=== PATIENT | female | born 1945 | race Two or more races ===

== ENCOUNTER 2017-06-28 07:14 | Outpatient (CLI) | payer OTHER | END 2017-06-28 07:16 | disposition home or self-care (01) | LOC: SONOGRAMA 07:14 | DX: R22.2 Localized swelling, mass and lump, trunk (principal) ==

== ENCOUNTER 2018-12-12 09:39 | Day surgery (SDC) | payer OTHER ==
[~2018-12-12 09:39] MED LIST: AVALIDE 300-121 EACH PO; FOLGARD TABLET1 EACH PO; GLUCOPHAGE XR750 MG PO; NEURIN SL; NORVASC5 MG PO; SYNTHROID100 MCG PO; SYNTHROID150 MCG PO; ZANTAC150 M3 PO; ZINC LOZENGES1 EACH; ZOCOR20 MG PO
== END 2018-12-12 15:35 | disposition home or self-care (01) ==
LOC: CIR.AMB 09:39
DX: D24.2 Benign neoplasm of left breast (principal)

== ENCOUNTER 2019-09-09 23:33 | Emergency (ER) | payer OTHER ==
[~2019-09-09] VITALS: Ht 160 cm; Wt 68.0 kg
[2019-09-09] MEDS ORDERED: DIOVAN HCT 1601 EACH (23:44)
[2019-09-10] MEDS ORDERED: LEVSIN/SL0.125 MG SL ×2 (04:42→04:43)
== END 2019-09-10 04:44 | disposition home or self-care (01) ==
LOC: ER 23:33
DX: D35.02 Benign neoplasm of left adrenal gland (principal); D35.01 Benign neoplasm of right adrenal gland; R10.2 Pelvic and perineal pain

== ENCOUNTER 2019-10-17 07:14 | Outpatient (CLI) | payer OTHER ==
[~2019-10-17 07:14] MED LIST changes: +DIOVAN HCT 1601 EACH; +LEVSIN/SL0.125 MG SL
== END 2019-10-17 07:22 | disposition home or self-care (01) ==
LOC: MRI 07:14
PROVIDERS: ATTEND Internal Medicine Hematology & Oncology
DX: C73 Malignant neoplasm of thyroid gland (principal); D51.1 Vitamin B12 deficiency anemia due to selective vitamin B12 malabsorption with proteinuria; D51.3 Other dietary vitamin B12 deficiency anemia; C44.629 Squamous cell carcinoma of skin of left upper limb, including shoulder; E55.9 Vitamin D deficiency, unspecified; E89.0 Postprocedural hypothyroidism; I10 Essential (primary) hypertension; E08.65 Diabetes mellitus due to underlying condition with hyperglycemia; J45.20 Mild intermittent asthma, uncomplicated; E78.49 Other hyperlipidemia; R92.0 Mammographic microcalcification found on diagnostic imaging of breast; N60.22 Fibroadenosis of left breast; N64.1 Fat necrosis of breast
CPT/HCPCS: 74183; A9575; 74182

== ENCOUNTER 2020-03-23 08:02 | Outpatient (CLI) | payer OTHER | END 2020-03-23 08:04 | disposition home or self-care (01) | LOC: RX STUDY 08:02 | PROVIDERS: ATTEND Internal Medicine Gastroenterology | DX: R10.13 Epigastric pain (principal) ==

== ENCOUNTER 2021-03-12 07:51 | Outpatient (CLI) | payer OTHER | END 2021-03-12 07:59 | disposition home or self-care (01) | LOC: LAB 07:51 | PROVIDERS: ATTEND Internal Medicine Hematology & Oncology | DX: I10 Essential (primary) hypertension (principal); D50.8 Other iron deficiency anemias; R74.02 Elevation of levels of lactic acid dehydrogenase [LDH]; K76.89 Other specified diseases of liver; D51.8 Other vitamin B12 deficiency anemias; E06.3 Autoimmune thyroiditis; C50.919 Malignant neoplasm of unspecified site of unspecified female breast; R97.8 Other abnormal tumor markers; R97.0 Elevated carcinoembryonic antigen [CEA]; C73 Malignant neoplasm of thyroid gland; D51.1 Vitamin B12 deficiency anemia due to selective vitamin B12 malabsorption with proteinuria; D51.3 Other dietary vitamin B12 deficiency anemia; C44.629 Squamous cell carcinoma of skin of left upper limb, including shoulder; E55.9 Vitamin D deficiency, unspecified; E08.65 Diabetes mellitus due to underlying condition with hyperglycemia; J45.20 Mild intermittent asthma, uncomplicated; E78.5 Hyperlipidemia, unspecified; R92.0 Mammographic microcalcification found on diagnostic imaging of breast; N60.22 Fibroadenosis of left breast; N64.1 Fat necrosis of breast; E03.8 Other specified hypothyroidism; E78.2 Mixed hyperlipidemia; E56.8 Deficiency of other vitamins; R19.5 Other fecal abnormalities; N19 Unspecified kidney failure; Z12.11 Encounter for screening for malignant neoplasm of colon; N39.0 Urinary tract infection, site not specified ==

== ENCOUNTER 2021-08-20 07:20 | Outpatient (CLI) | payer OTHER | END 2021-08-20 07:21 | disposition home or self-care (01) | LOC: LAB 07:20 | PROVIDERS: ATTEND Internal Medicine Hematology & Oncology | DX: D50.9 Iron deficiency anemia, unspecified (principal); E03.9 Hypothyroidism, unspecified; E78.2 Mixed hyperlipidemia; I11.9 Hypertensive heart disease without heart failure; E56.8 Deficiency of other vitamins; N39.0 Urinary tract infection, site not specified; Z12.11 Encounter for screening for malignant neoplasm of colon; R19.5 Other fecal abnormalities; E55.9 Vitamin D deficiency, unspecified; N19 Unspecified kidney failure; E11.9 Type 2 diabetes mellitus without complications; R80.9 Proteinuria, unspecified; D64.9 Anemia, unspecified; D50.8 Other iron deficiency anemias; R74.02 Elevation of levels of lactic acid dehydrogenase [LDH]; K76.89 Other specified diseases of liver; D51.8 Other vitamin B12 deficiency anemias; E03.8 Other specified hypothyroidism; E06.3 Autoimmune thyroiditis; C50.919 Malignant neoplasm of unspecified site of unspecified female breast; R97.8 Other abnormal tumor markers; R97.0 Elevated carcinoembryonic antigen [CEA]; C73 Malignant neoplasm of thyroid gland; D51.1 Vitamin B12 deficiency anemia due to selective vitamin B12 malabsorption with proteinuria; D51.3 Other dietary vitamin B12 deficiency anemia; C44.629 Squamous cell carcinoma of skin of left upper limb, including shoulder; J45.20 Mild intermittent asthma, uncomplicated; E78.5 Hyperlipidemia, unspecified; R92.0 Mammographic microcalcification found on diagnostic imaging of breast; N60.22 Fibroadenosis of left breast; N64.1 Fat necrosis of breast ==

== ENCOUNTER 2021-12-24 07:37 | Outpatient (CLI) | payer OTHER | END 2021-12-24 07:38 | disposition home or self-care (01) | LOC: LAB 07:37 | PROVIDERS: ATTEND Internal Medicine Geriatric Medicine | DX: D50.9 Iron deficiency anemia, unspecified (principal); E03.9 Hypothyroidism, unspecified; E78.2 Mixed hyperlipidemia; I11.9 Hypertensive heart disease without heart failure; E56.8 Deficiency of other vitamins; N39.0 Urinary tract infection, site not specified; R19.5 Other fecal abnormalities; E55.9 Vitamin D deficiency, unspecified; N19 Unspecified kidney failure; E11.9 Type 2 diabetes mellitus without complications; Z12.11 Encounter for screening for malignant neoplasm of colon ==

== ENCOUNTER 2022-03-18 07:08 | Outpatient (CLI) | payer OTHER | END 2022-03-18 07:11 | disposition home or self-care (01) | LOC: LAB 07:08 | PROVIDERS: ATTEND Internal Medicine Hematology & Oncology | DX: D50.8 Other iron deficiency anemias (principal); I10 Essential (primary) hypertension; R74.02 Elevation of levels of lactic acid dehydrogenase [LDH]; K76.89 Other specified diseases of liver; D51.8 Other vitamin B12 deficiency anemias; E55.9 Vitamin D deficiency, unspecified; E03.8 Other specified hypothyroidism; E06.3 Autoimmune thyroiditis; C50.919 Malignant neoplasm of unspecified site of unspecified female breast; R97.8 Other abnormal tumor markers; R97.0 Elevated carcinoembryonic antigen [CEA]; C73 Malignant neoplasm of thyroid gland; D51.1 Vitamin B12 deficiency anemia due to selective vitamin B12 malabsorption with proteinuria; D51.3 Other dietary vitamin B12 deficiency anemia; C44.629 Squamous cell carcinoma of skin of left upper limb, including shoulder; J45.20 Mild intermittent asthma, uncomplicated; E78.5 Hyperlipidemia, unspecified; R92.0 Mammographic microcalcification found on diagnostic imaging of breast; N60.22 Fibroadenosis of left breast; N64.1 Fat necrosis of breast; E11.9 Type 2 diabetes mellitus without complications; E78.00 Pure hypercholesterolemia, unspecified ==

== ENCOUNTER 2022-03-21 21:12 | Emergency (ER) | payer OTHER ==
[~2022-03-21] VITALS: Ht 160 cm; Wt 65.8 kg
[2022-03-21] MEDS ORDERED: ST. JOSEPH ASPI81 M2 PO (21:53)
[2022-03-21] MEDS ORDERED: JANUMET 50-1,01 EACH PO (21:53)
== END 2022-03-21 23:25 | disposition home or self-care (01) ==
LOC: ER 21:12
DX: M62.838 Other muscle spasm (principal); Z88.0 Allergy status to penicillin; Z88.6 Allergy status to analgesic agent; J45.909 Unspecified asthma, uncomplicated; Z85.9 Personal history of malignant neoplasm, unspecified; E03.9 Hypothyroidism, unspecified; I10 Essential (primary) hypertension

== ENCOUNTER 2022-09-16 07:25 | Outpatient (CLI) | payer OTHER ==
[~2022-09-16 07:25] MED LIST changes: +JANUMET 50-1,01 EACH PO; +ST. JOSEPH ASPI81 M2 PO
== END 2022-09-16 07:36 | disposition home or self-care (01) ==
LOC: LAB 07:25
PROVIDERS: ATTEND Internal Medicine Hematology & Oncology
DX: D50.8 Other iron deficiency anemias (principal); I10 Essential (primary) hypertension; R74.02 Elevation of levels of lactic acid dehydrogenase [LDH]; K76.89 Other specified diseases of liver; D51.8 Other vitamin B12 deficiency anemias; E55.9 Vitamin D deficiency, unspecified; E06.3 Autoimmune thyroiditis; C50.919 Malignant neoplasm of unspecified site of unspecified female breast; R97.8 Other abnormal tumor markers; R97.0 Elevated carcinoembryonic antigen [CEA]; C73 Malignant neoplasm of thyroid gland; D51.1 Vitamin B12 deficiency anemia due to selective vitamin B12 malabsorption with proteinuria; D51.3 Other dietary vitamin B12 deficiency anemia; C44.629 Squamous cell carcinoma of skin of left upper limb, including shoulder; E89.0 Postprocedural hypothyroidism; E08.65 Diabetes mellitus due to underlying condition with hyperglycemia; J45.20 Mild intermittent asthma, uncomplicated; E78.5 Hyperlipidemia, unspecified; R92.0 Mammographic microcalcification found on diagnostic imaging of breast; N60.22 Fibroadenosis of left breast; N64.1 Fat necrosis of breast

== ENCOUNTER → 2023-04-19 06:59 | Outpatient (CLI) | payer OTHER ==
[2023-04-19 07:46] LABS: HEMATOCRIT 37.1 % (36.0-45.00); HEMOGLOBIN 12.4 g/dL (12.0-15.00); MEAN CELL VOLUME 89.8 fL (80.00-100.00); MEAN CORPUSCULAR HEMOGLOBIN 30.1 pg (27.00-32.0); MEAN CORPUSCULAR HGB CONC 33.5 g/dl (32.0-36.0); PLATELET COUNT 268 K/uL (150-450); RED BLOOD COUNT 4.13 M/uL (4.00-6.00); RED CELL DISTRIBUTION WIDTH 14.9 % (11.5-14.5)
[2023-04-19 08:38] LABS: BILIRUBIN TOTAL 0.48 mg/dL (0.3-1.2); CALCIUM 9.4 mg/dL (8.5-10.1); CREATININE SERUM 0.83 mg/dL (0.55-1.02); GFR 66.84; GLOBULINA 3.2 G/DL (2.4-3.5); POTASSIUM 4.09 mEq/L (3.5-5.1); TOTAL PROTEIN 7.2 gm/dL (6.4-8.2); TSH 0.413 uIU/mL (0.358-3.74)
[2023-04-19 08:57] LABS: T4 FREE 1.49 NG/ML (0.76-1.46)
[2023-04-19 09:54] LABS: FOLIC ACID 17.26 ng/ml (4.78-20); VITAMIN D3 25 HYDROXY 66.69 ng/ml (30-120)
[2023-04-20 10:11] LABS: CA 15-3 12.3 U/mL (0.0-25.0)
== END | disposition home or self-care (01) ==
LOC: LAB 06:59
PROVIDERS: ATTEND Internal Medicine Hematology & Oncology
DX: C73 Malignant neoplasm of thyroid gland (principal); D51.1 Vitamin B12 deficiency anemia due to selective vitamin B12 malabsorption with proteinuria; D51.3 Other dietary vitamin B12 deficiency anemia; C44.629 Squamous cell carcinoma of skin of left upper limb, including shoulder; E55.9 Vitamin D deficiency, unspecified; E89.0 Postprocedural hypothyroidism; I10 Essential (primary) hypertension; E08.65 Diabetes mellitus due to underlying condition with hyperglycemia; J45.20 Mild intermittent asthma, uncomplicated; E78.5 Hyperlipidemia, unspecified; R92.0 Mammographic microcalcification found on diagnostic imaging of breast; N60.22 Fibroadenosis of left breast; N64.1 Fat necrosis of breast

== ENCOUNTER → 2023-10-19 07:21 | Outpatient (CLI) | payer OTHER ==
[2023-10-19 08:37] LABS: HEMATOCRIT 35.2 % (36.0-45.00); HEMOGLOBIN 11.7 g/dL (12.0-15.00); MEAN CELL VOLUME 88.6 fL (80.00-100.00); MEAN CORPUSCULAR HEMOGLOBIN 29.5 pg (27.00-32.0); MEAN CORPUSCULAR HGB CONC 33.3 g/dl (32.0-36.0); PLATELET COUNT 294 K/uL (150-450); RED BLOOD COUNT 3.97 M/uL (4.00-6.00); RED CELL DISTRIBUTION WIDTH 17.3 % (11.5-14.5)
[2023-10-19 09:05] LABS: PH,URINE 7.5 (5.0-8.0); URINE APPEARANCE Clear; URINE BILIRRUBIN Negative (NEGATIVE); URINE BLOOD Negative; URINE COLOR Yellow; URINE GLUCOSE Negative (NEGATIVE); URINE LEUKOCYTE Moderate; URINE NITRATE Negative; URINE PROTEIN Negative (NEGATIVE)
[2023-10-19 09:08] LABS: ob POSITIVE (NEGATIVE)
[2023-10-19 09:10] LABS: URINE BACTERIA 105.7 uL (0.0-1933); URINE EPITHELIAL CELLS 5.2 uL (0.0-38.8); URINE WBC 62.5 uL (0.0-23.2)
[2023-10-19 09:22] LABS: URINE RBC 1.8 uL (0.0-20.8)
[2023-10-19 09:32] LABS: % SATURACION 14.3 % (15-50); ALBUMIN 3.8 gm/dL (3.4-5.0); BILIRUBIN TOTAL 0.35 mg/dL (0.3-1.2); CALCIUM 9.4 mg/dL (8.5-10.1); CREATININE SERUM 0.76 mg/dL (0.55-1.02); FERRITIN 13.7 NG/ML (8-252); GFR 73.79; GLOBULINA 2.9 G/DL (2.4-3.5); POTASSIUM 4.21 mEq/L (3.5-5.1); T4 FREE 1.28 NG/ML (0.76-1.46); TOTAL PROTEIN 6.7 gm/dL (6.4-8.2); TSH 0.784 uIU/mL (0.358-3.74)
[2023-10-19 09:50] LABS: CHOL HDL RATIO 4.2 (0-5.0)
[2023-10-19 13:08] LABS: FOLIC ACID > 20.00 ng/ml (4.78-20); VITAMIN D3 25 HYDROXY 57.25 ng/ml (30-120)
[2023-10-21 09:05] LABS: CA 15-3 13.9 U/mL (0.0-25.0)
== END | disposition home or self-care (01) ==
LOC: LAB 07:21
PROVIDERS: ATTEND Internal Medicine Hematology & Oncology
DX: C73 Malignant neoplasm of thyroid gland (principal); D51.1 Vitamin B12 deficiency anemia due to selective vitamin B12 malabsorption with proteinuria; D51.3 Other dietary vitamin B12 deficiency anemia; C44.629 Squamous cell carcinoma of skin of left upper limb, including shoulder; E55.9 Vitamin D deficiency, unspecified; I10 Essential (primary) hypertension; J45.20 Mild intermittent asthma, uncomplicated; E78.5 Hyperlipidemia, unspecified; R92.0 Mammographic microcalcification found on diagnostic imaging of breast; N60.22 Fibroadenosis of left breast; N64.1 Fat necrosis of breast; R97.8 Other abnormal tumor markers; D50.9 Iron deficiency anemia, unspecified; E03.9 Hypothyroidism, unspecified; E78.2 Mixed hyperlipidemia; I11.9 Hypertensive heart disease without heart failure; E56.8 Deficiency of other vitamins; N39.0 Urinary tract infection, site not specified; Z12.11 Encounter for screening for malignant neoplasm of colon; R19.5 Other fecal abnormalities; N19 Unspecified kidney failure; E11.9 Type 2 diabetes mellitus without complications

== ENCOUNTER 2023-12-21 07:27 | Outpatient (CLI) | payer OTHER ==
[2023-12-21 07:47] LABS: HEMATOCRIT 38.5 % (36.0-45.00); HEMOGLOBIN 12.9 g/dL (12.0-15.00); MEAN CELL VOLUME 89.9 fL (80.00-100.00); MEAN CORPUSCULAR HEMOGLOBIN 30.1 pg (27.00-32.0); MEAN CORPUSCULAR HGB CONC 33.5 g/dl (32.0-36.0); PLATELET COUNT 245 K/uL (150-450); RED BLOOD COUNT 4.29 M/uL (4.00-6.00); RED CELL DISTRIBUTION WIDTH 16.4 % (11.5-14.5)
[2023-12-21 08:51] LABS: INR 0.96; PARTIAL THROMBOPLASTIN TIME 26.5 SECONDS (22.0-34.0); PROTHROMBIN TIME 10.5 SECONDS (9.0-11.5)
[2023-12-21 08:57] LABS: ALBUMIN 3.9 gm/dL (3.4-5.0); BILIRUBIN TOTAL 0.28 mg/dL (0.3-1.2); CALCIUM 9.6 mg/dL (8.5-10.1); CREATININE SERUM 0.94 mg/dL (0.55-1.02); GFR 57.74; GLOBULINA 3.2 G/DL (2.4-3.5); POTASSIUM 4.59 mEq/L (3.5-5.1); TOTAL PROTEIN 7.1 gm/dL (6.4-8.2)
== END 2023-12-21 07:33 | disposition home or self-care (01) ==
LOC: LAB 07:27
PROVIDERS: ATTEND Surgery
DX: R19.5 Other fecal abnormalities (principal); D50.0 Iron deficiency anemia secondary to blood loss (chronic); R97.0 Elevated carcinoembryonic antigen [CEA]

== ENCOUNTER 2023-12-22 08:24 | Outpatient (CLI) | payer OTHER | END 2023-12-22 08:28 | disposition home or self-care (01) | LOC: RAD 08:24 | PROVIDERS: ATTEND Internal Medicine | DX: J45.20 Mild intermittent asthma, uncomplicated (principal) ==

== ENCOUNTER → 2023-12-22 08:52 | Outpatient (CLI) | payer OTHER ==
[2023-12-22 10:44] LABS: PH,URINE 5.5 (5.0-8.0); URINE APPEARANCE Clear; URINE BILIRRUBIN Negative (NEGATIVE); URINE BLOOD Negative; URINE COLOR Yellow; URINE GLUCOSE Negative (NEGATIVE); URINE KETONE Negative (NEGATIVE); URINE LEUKOCYTE Moderate; URINE NITRATE Negative; URINE PROTEIN Negative (NEGATIVE); URINE UROBILINOGEN 0.2 E.U./dl
[2023-12-22 10:50] LABS: URINE EPITHELIAL CELLS 11.8 uL (0.0-38.8); URINE WBC 109.2 uL (0.0-23.2)
== END | disposition home or self-care (01) ==
LOC: LAB 08:52
PROVIDERS: ATTEND Internal Medicine
DX: N30.90 Cystitis, unspecified without hematuria (principal)

== ENCOUNTER 2023-12-31 05:37 | Day surgery (SDC) | payer OTHER | END 2023-12-31 11:45 | disposition home or self-care (01) | LOC: AMB-ENDOS 05:37 → CIR.AMB 13:00 | PROVIDERS: ATTEND Surgery | DX: K57.30 Diverticulosis of large intestine without perforation or abscess without bleeding (principal); R19.5 Other fecal abnormalities; Z88.6 Allergy status to analgesic agent; Z88.5 Allergy status to narcotic agent; Z88.0 Allergy status to penicillin ==

== ENCOUNTER 2024-02-18 07:34 | Outpatient (CLI) | payer OTHER ==
[2024-02-18 08:18] LABS: HEMATOCRIT 41.2 % (36.0-45.00); HEMOGLOBIN 14.1 g/dL (12.0-15.00); MEAN CELL VOLUME 90.8 fL (80.00-100.00); MEAN CORPUSCULAR HEMOGLOBIN 31.1 pg (27.00-32.0); MEAN CORPUSCULAR HGB CONC 34.2 g/dl (32.0-36.0); PLATELET COUNT 254 K/uL (150-450); RED BLOOD COUNT 4.53 M/uL (4.00-6.00); RED CELL DISTRIBUTION WIDTH 14.7 % (11.5-14.5)
[2024-02-18 10:28] LABS: BILIRUBIN TOTAL 0.37 mg/dL (0.3-1.2); CREATININE SERUM 0.98 mg/dL (0.55-1.02); FERRITIN 30.2 NG/ML (8-252); GFR 55.03; T4 FREE 1.15 NG/ML (0.76-1.46); TOTAL PROTEIN 7.2 gm/dL (6.4-8.2); TSH 1.67 uIU/mL (0.358-3.74)
[2024-02-18 10:48] LABS: ALBUMIN 4.1 gm/dL (3.4-5.0); CALCIUM 9.5 mg/dL (8.5-10.1); GLOBULINA 3.1 G/DL (2.4-3.5); POTASSIUM 4.33 mEq/L (3.5-5.1)
[2024-02-18 12:18] LABS: FOLIC ACID > 20.00 ng/ml (4.78-20)
== END 2024-02-18 07:41 | disposition home or self-care (01) ==
LOC: LAB 07:34
PROVIDERS: ATTEND Internal Medicine Hematology & Oncology
DX: C73 Malignant neoplasm of thyroid gland (principal); D51.1 Vitamin B12 deficiency anemia due to selective vitamin B12 malabsorption with proteinuria; D51.3 Other dietary vitamin B12 deficiency anemia; C44.629 Squamous cell carcinoma of skin of left upper limb, including shoulder; E55.9 Vitamin D deficiency, unspecified; E89.0 Postprocedural hypothyroidism; I10 Essential (primary) hypertension; E08.65 Diabetes mellitus due to underlying condition with hyperglycemia; J45.20 Mild intermittent asthma, uncomplicated; E78.2 Mixed hyperlipidemia; R92.0 Mammographic microcalcification found on diagnostic imaging of breast; N60.22 Fibroadenosis of left breast; N64.1 Fat necrosis of breast; K62.5 Hemorrhage of anus and rectum; E03.8 Other specified hypothyroidism; E11.9 Type 2 diabetes mellitus without complications

== ENCOUNTER 2024-02-20 07:15 | Outpatient (CLI) | payer OTHER ==
[2024-02-20 08:26] LABS: ob NEGATIVE (NEGATIVE)
== END 2024-02-20 07:18 | disposition home or self-care (01) ==
LOC: LAB 07:15
PROVIDERS: ATTEND Internal Medicine Hematology & Oncology
DX: C73 Malignant neoplasm of thyroid gland (principal); D51.1 Vitamin B12 deficiency anemia due to selective vitamin B12 malabsorption with proteinuria; D51.3 Other dietary vitamin B12 deficiency anemia; C44.629 Squamous cell carcinoma of skin of left upper limb, including shoulder; E55.9 Vitamin D deficiency, unspecified; E89.0 Postprocedural hypothyroidism; I10 Essential (primary) hypertension; E08.65 Diabetes mellitus due to underlying condition with hyperglycemia; J45.20 Mild intermittent asthma, uncomplicated; E78.5 Hyperlipidemia, unspecified; R92.0 Mammographic microcalcification found on diagnostic imaging of breast; N60.22 Fibroadenosis of left breast; N64.1 Fat necrosis of breast; K62.5 Hemorrhage of anus and rectum; D50.8 Other iron deficiency anemias; R74.02 Elevation of levels of lactic acid dehydrogenase [LDH]; K76.89 Other specified diseases of liver; Z12.11 Encounter for screening for malignant neoplasm of colon; R19.5 Other fecal abnormalities; R97.0 Elevated carcinoembryonic antigen [CEA]

== ENCOUNTER 2024-05-18 13:18 | Emergency (ER) | payer OTHER ==
[~2024-05-18] VITALS: Ht 157.5 cm; Wt 65.8 kg
[2024-05-18] MEDS ORDERED: DIOVAN160 M1 PO (13:53)
[2024-05-18] MEDS ORDERED: PRILOSEC OTC20 MG (13:54)
[2024-05-18] MEDS ORDERED: KETOROLAC TROMETHAMINE 30 MG VIAL ONE (15:13)
[2024-05-18] MEDS ORDERED: KETOROLAC TROMETHAMINE 30 MG VIAL IM ONE (15:15)
[2024-05-18] MEDS ORDERED: ARTHRITIS PAIN650 MG PO (16:41)
== END 2024-05-18 17:07 ==
LOC: ER 13:18
DX: M25.561 Pain in right knee (principal); I10 Essential (primary) hypertension; E03.8 Other specified hypothyroidism; E11.9 Type 2 diabetes mellitus without complications; Z79.84 Long term (current) use of oral hypoglycemic drugs; Z88.0 Allergy status to penicillin; Z88.5 Allergy status to narcotic agent
CPT/HCPCS: 73560; 96372; 99283; J1885

== ENCOUNTER → 2025-02-12 06:51 | Outpatient (CLI) | payer OTHER ==
[~2025-02-12 06:51] MED LIST changes: +ARTHRITIS PAIN650 MG PO; +DIOVAN160 M1 PO; +PRILOSEC OTC20 MG
[2025-02-12 08:05] LABS: URINE APPEARANCE Clear; URINE BILIRRUBIN Negative (NEGATIVE); URINE BLOOD Negative; URINE COLOR Yellow; URINE KETONE Negative (NEGATIVE); URINE LEUKOCYTE Moderate; URINE NITRATE Negative; URINE PROTEIN Negative (NEGATIVE); URINE UROBILINOGEN 0.2 E.U./dl
[2025-02-12 08:09] LABS: URINE BACTERIA 387.6 uL (0.0-1933); URINE EPITHELIAL CELLS 17.2 uL (0.0-38.8); URINE WBC 302.1 uL (0.0-23.2)
[2025-02-12 08:27] LABS: BASO % 0.9 % (0.1-1.2); EOS # 0.31 (0.04-0.54); EOS % 4.2 % (0.7-7.0); LYMPH # 2.90 (1.18-3.74); LYMPH % 39.1 % (19.3-53.1); MEAN PLATELET VOLUME 11.50 fl (9.4-12.4); MONO # 0.41 (0.24-0.82); MONO % 5.5 % (4.7-12.5); NEUT # 3.68 (1.56-6.13); NEUT % 49.6 % (34.0-71.1); RED CELL DISTRIBUTION WIDTH 13.8 % (11.6-14.4)
[2025-02-12 08:46] LABS: % SATURACION 33.9 % (15-50); ALT/SGPT 41.0 U/L (12-78); AST/SGOT 24.0 U/L (15-37); BILIRUBIN TOTAL 0.55 mg/dL (0.3-1.2); BUN CREA RATIO 31.0 (7.0-25.0); CHOL HDL RATIO 4.3 (0-5.0); CREATININE SERUM 0.97 mg/dL (0.55-1.02); FE 120.0 ug/dl (50-170); GFR 55.54; GLOBULINA 2.9 G/DL (2.4-3.5); GLUCOSE FASTING 134.0 mg/dL (65-100); HDL 48.0 mg/dl (40-60); LDH 203.0 U/L (84-246); LDL 122.0 mg/dl (0-130); OSMOLALITY SERUM 289.0 MOSM/KG (275-295); TSH 2.16 uIU/mL (0.358-3.74); VLDL 35.0 (0-39)
[2025-02-12 08:46] LABS: URINE CAST 0.29 uL (0.0-1.40); URINE GLUCOSE >=1000 MG/DL (NEGATIVE); URINE RBC 1.6 uL (0.0-20.8)
[2025-02-12 08:47] LABS: TYPE CELLS SQUAMOUS; URINE MUCUS SCANT
[2025-02-12 10:44] LABS: FOLIC ACID > 20.00 ng/ml (4.78-20); VITAMIN D3 25 HYDROXY 57.01 ng/ml (30-120)
[2025-02-13 11:07] LABS: CA 125 11.1 U/mL (0.0-38.1); CA 15-3 15.0 U/mL (0.0-25.0); CA 19-9 21.0 U/mL (0-35)
== END | disposition home or self-care (01) ==
LOC: LAB 06:51
PROVIDERS: ATTEND Internal Medicine Hematology & Oncology
DX: C73 Malignant neoplasm of thyroid gland (principal); D51.1 Vitamin B12 deficiency anemia due to selective vitamin B12 malabsorption with proteinuria; D51.3 Other dietary vitamin B12 deficiency anemia; C44.629 Squamous cell carcinoma of skin of left upper limb, including shoulder; E55.9 Vitamin D deficiency, unspecified; E89.0 Postprocedural hypothyroidism; I10 Essential (primary) hypertension; J45.20 Mild intermittent asthma, uncomplicated; E78.5 Hyperlipidemia, unspecified; R92.0 Mammographic microcalcification found on diagnostic imaging of breast; N60.22 Fibroadenosis of left breast; N64.1 Fat necrosis of breast; K62.5 Hemorrhage of anus and rectum; R19.5 Other fecal abnormalities; D50.8 Other iron deficiency anemias; R74.02 Elevation of levels of lactic acid dehydrogenase [LDH]; K76.89 Other specified diseases of liver; R97.0 Elevated carcinoembryonic antigen [CEA]; C50.919 Malignant neoplasm of unspecified site of unspecified female breast; E11.9 Type 2 diabetes mellitus without complications; R30.0 Dysuria